=== PATIENT | female | born 1950 | race Caucasian/White ===

== ENCOUNTER 2017-06-20 11:16 | Emergency (ER) | payer MEDICARE, OTHER ==
[~2017-06-20] VITALS: Ht 157.5 cm; Wt 79.6 kg
[2017-06-20 11:20] VITALS: Ht 157.5 cm; Wt 79.6 kg
[2017-06-20] MEDS ORDERED: IBUPROFEN 600 MG TAB PO ONE (12:00)
[2017-06-20] MEDS ORDERED: CYCL-319 PO (13:35)
[2017-06-20] MEDS ORDERED: IBUP-1542 PO (13:35)
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
== END 2017-06-20 13:48 | disposition home or self-care (01) ==
LOC: FTE 11:16
DX: S80.01XA Contusion of right knee, initial encounter (principal); V49.40XA Driver injured in collision with unspecified motor vehicles in traffic accident, initial encounter
CPT/HCPCS: 76705